=== PATIENT | male | born 1940 | race Caucasian/White ===

== ENCOUNTER 2016-08-24 12:41 | Emergency (ER) | payer OTHER ==
[~2016-08-24] VITALS: Ht 182.9 cm; Wt 87.0 kg
[2016-08-24 12:44] VITALS: BP 131/70; PULSE 68; RESP 12; TEMP 97.3; O2SAT 95
[2016-08-24] MEDS ORDERED: CIPR-9 PO (14:59)
[2016-08-24] MEDS ORDERED: IBUP800T23 PO (15:01)
[2016-09-20] MEDS ORDERED: ALPR.5 PO (11:10)
[2016-11-28] MEDS ORDERED: B-COTAB41 (10:55)
[2016-11-28] MEDS ORDERED: AMLO2.5T PO (10:55)
[2016-11-28] MEDS ORDERED: VITATAB11 (10:55)
[2016-11-28] MEDS ORDERED: POTACRY9 (10:57)
[2016-11-28] MEDS ORDERED: POTA8CAP PO (10:57)
[2016-11-28] MEDS ORDERED: MAGN500T2 PO (10:57)
[2016-11-28] MEDS ORDERED: MULTTAB67 PO (10:58)
[2016-11-28] MEDS ORDERED: AMLO10TA2 PO (11:16)
[2016-11-28] MEDS ORDERED: HYDR-3288 PO (11:16)
== END 2016-08-24 14:45 | disposition left against medical advice (07) ==
LOC: MERGE 14:40 → NED 14:40
DX: M79.606 Pain in leg, unspecified (principal)
CPT/HCPCS: 99281

== ENCOUNTER → 2016-11-28 | Day surgery (SDC) | payer OTHER ==
[~2016-11-28] VITALS: Ht 182.9 cm; Wt 85.0 kg
[~2016-11-28] MED LIST: *morphine SULFATE 8 MG/ML PERIprocedure ONLY ONE; ACETAMINOPHEN 1000 MG/100 ML VIAL IV ONE; ALPR.5 PO; AMLO10TA2 PO; AMLO2.5T PO; B-COTAB41; BUPIVACAINE/EPINEPHRINE 0.25% PF 30 ML VIAL INFIL ONE; CHLORHEXIDINE GLUCONATE 2 % 1 PACK (2 CLOTHS) TOPICAL PRN; CHLORHEXIDINE GLUCONATE 4% SOLN 120 ML BTL TOPICAL SCH; DEXAMETHASONE SOD PHOS 4 MG/ML VIAL ONE; DO NOT ADM ANY ANTICOAGULANT DRUGS PRN; FAMOTIDINE 20 MG/2 ML VIAL ONE; GENTAMICIN SULFATE 80 MG/2 ML VIAL ONE; HYDR-3288 PO; IBUP800T23 PO; INSULIN HUMAN REGULAR 1,000 UNITS/10 ML VIAL SQ PRN; LACTATED RINGER'S 1000 ML INJ 1,000 ML IV ONE; LACTATED RINGER'S 1000 ML IV PRN; MAGN500T2 PO; METOPROLOL TARTRATE 25 MG TAB PO PRN; MIDAZOLAM HCL 2 MG/2 ML VIAL ONE; MULTTAB67 PO; NEOSTIGMINE 3 MG/3 ML SYR IV ONE; ONDANSETRON HCL 4 MG/2 ML VIAL IV PUSH ONE; PHENYLEPH/NS 1000 MCG/10 ML SYR IV ONE; POTA8CAP PO; POTACRY9; POVIDONE IODINE 5% (ANTISEPSIS KIT) 4 APPLICATIONS EACH NARE PRN; PROPOFOL 200 MG/20 ML AMP IV ONE; SODIUM CHLORID 0.9% 500 ML IV PRN; STERILE WATER FOR INJ 20 ML VIAL ONE; VITATAB11; ceFAZolin 1,000 MG/NS 100 ML IV SCH; ceFAZolin INJ 1,000 MG VIAL ONE; ePHEDrine/NS 25 MG/5 ML SYR IV ONE; fentaNYL CITRATE 250 MCG/5 ML AMP ONE
[2016-11-28 10:59] VITALS: BP 148/72; PULSE 62; RESP 20; TEMP 98.5; O2SAT 98
--- NOTE | 2016-11-28 15:52 | RADRPT ---
EXAM DATE/TIME: 11/28/2016 13:55 [place] COMPARISON: No previous studies available for comparison. INDICATIONS : L2-L3 lumbar laminectomy. Level localization. MEDICAL HISTORY : None. SURGICAL HISTORY : None. ENCOUNTER: Initial ACUITY: 1 day PAIN SCORE: Non-responsive. LOCATION: Lumbar spine. FINDINGS: 2 coned down crosstable lateral views of the lumbar spine were obtained and demonstrate a metallic pr obe in place at the posterior aspect of the L2-3 interspace. The study is labeled assuming 5 non-rib- bearing lumbar-type vertebra. Spinal retractors are noted posteriorly as well. CONCLUSION: Mid localization study as described. Cullen Mock MD on November 28, 2016 at 15:50 Board Certified Radiologist. This report was verified electronically.
[2016-11-28 16:20] VITALS: BP 131/73; PULSE 80; RESP 16; TEMP 97.4; O2SAT 95
--- NOTE | 2016-11-29 11:03 | MP ---
cc: NERY ELLISON M.D., [place] DATE OF SURGERY 11/28/2016 PREOPERATIVE DIAGNOSIS 1. L2-3 herniated nucleus pulposis 2. Right greater left lumbar radiculitis 3. Lumbar spine degenerative disc osteoarthritis POSTOPERATIVE DIAGNOSIS 1. L2-3 herniated nucleus pulposis 2. Right greater left lumbar radiculitis 3. Lumbar spine degenerative disc osteoarthritis PROCEDURE L2-3 bilateral decompressive hemilaminectomy, foraminotomy, partial facetectomy, L2-3 diskectomy. SURGEON Lobo Ellison MD SHOE REPAIR SUPERVISOR Leanna Charlton PA-C SPECIMEN None ESTIMATED BLOOD LOSS 125 cc COMPLICATIONS None ANESTHESIA General DRAINS None CONDITION Stable PLAN OF ACTIVITY Per orders. PROCEDURE My diver assistant, Leanna Charlton PA-C was present for the entire surgical case. She was medically necessary for the entire case because of the complexity case and to facilitate the performance of the procedure. The COLLAR CLOSER LOCKSTITCH at the back table was not a skill set this case to manipulate the instruments e.g. multiple different types of soft tissue retractors, nerve root retractors. The patient brought into the operating room, had satisfactory general endotracheal anesthesia by Dr. Payam Monterroso of the Department of Anesthesia. The patient was carefully transferred onto the [facility] spinal frame. All pressure points were well-padded. The lumbosacral spine was prepped and draped in the usual sterile manner. A localizing x-ray was used to confirm the L2-3 interspace. 30 cc of 0.25% Marcaine with epinephrine used to anesthetize the operative site. The small midline incision made at L2-3. Under continuous fluoroscopic guidance, dissection was carried down to the L2-3 interspace. Hemilaminectomy performed bilaterally at L2-3. Partial facetectomy and foraminotomy was also performed especially on the right-sided. The nerve root was gently reflected medially. The patient was found to have herniated nucleus pulposis. Again, dissection was carried in a manner with confirmatory x-rays. Diskectomy was performed without difficulty. Minimal epidural bleeding, but Surgiflo was used to help prevent postoperative adhesions. The wound was irrigated with copious amounts of sterile saline. The wound itself was dry. The nerve root itself was well decompressed. No evidence of any dural leaks. The wound was closed in layers. The fascia was closed with #2 Tycron sutures. The subcutaneous layer was closed with 2-0 Vicryl. Skin was approximated with running subcuticular 3-0 Vicryl. Sterile dressings were applied. The patient tolerated the procedure well and arrived in the Recovery Room in stable and satisfactory condition. MD ROCÍO Ramsey/AAMIR /2:22 PM /10:54 AM
== END | disposition home or self-care (01) ==
LOC: HSDC 10:03
PROVIDERS: ATTEND Orthopaedic Surgery Orthopaedic Surgery of the Spine
DX: M51.16 Intervertebral disc disorders with radiculopathy, lumbar region (principal); M47.26 Other spondylosis with radiculopathy, lumbar region; I10 Essential (primary) hypertension
CPT/HCPCS: 00630; 63030; 72020; 76000; J0131; J0690; J1100; J1580; J2250; J2270; J2370; J2405; J2710; J3010; J7120

== ENCOUNTER → 2017-06-08 | Day surgery (SDC) | payer OTHER ==
[~2017-06-08] MED LIST changes: -*morphine SULFATE 8 MG/ML PERIprocedure ONLY ONE; -ACETAMINOPHEN 1000 MG/100 ML VIAL IV ONE; -AMLO2.5T PO; -B-COTAB41; -BUPIVACAINE/EPINEPHRINE 0.25% PF 30 ML VIAL INFIL ONE; +BUPIVACAINE/EPINEPHRINE 0.5% PF 10 ML VIAL ONE; -CHLORHEXIDINE GLUCONATE 2 % 1 PACK (2 CLOTHS) TOPICAL PRN; -CHLORHEXIDINE GLUCONATE 4% SOLN 120 ML BTL TOPICAL SCH; -DEXAMETHASONE SOD PHOS 4 MG/ML VIAL ONE; -DO NOT ADM ANY ANTICOAGULANT DRUGS PRN; -FAMOTIDINE 20 MG/2 ML VIAL ONE; -GENTAMICIN SULFATE 80 MG/2 ML VIAL ONE; +IBUP1TAB7 PO; -IBUP800T23 PO; -INSULIN HUMAN REGULAR 1,000 UNITS/10 ML VIAL SQ PRN; +KETOROLAC TROMETHAMINE 30 MG/ML (IVP) VIAL IV PUSH ONE; -LACTATED RINGER'S 1000 ML INJ 1,000 ML IV ONE; +LACTATED RINGER'S 1000 ML INJ 1,000 ML ONE; -LACTATED RINGER'S 1000 ML IV PRN; +LIDOCAINE 1.5%/EPINEPHrine 1:200,000 PF SOLN 30 ML AMP ONE; -METOPROLOL TARTRATE 25 MG TAB PO PRN; -NEOSTIGMINE 3 MG/3 ML SYR IV ONE; -ONDANSETRON HCL 4 MG/2 ML VIAL IV PUSH ONE; -PHENYLEPH/NS 1000 MCG/10 ML SYR IV ONE; -POTACRY9; -POVIDONE IODINE 5% (ANTISEPSIS KIT) 4 APPLICATIONS EACH NARE PRN; -SODIUM CHLORID 0.9% 500 ML IV PRN; -STERILE WATER FOR INJ 20 ML VIAL ONE; -ceFAZolin 1,000 MG/NS 100 ML IV SCH; +ceFAZolin 2 GM PREMIX 50 ML ONE; -ceFAZolin INJ 1,000 MG VIAL ONE; -ePHEDrine/NS 25 MG/5 ML SYR IV ONE; -fentaNYL CITRATE 250 MCG/5 ML AMP ONE
--- NOTE | 2017-06-08 09:29 | PD.OP ---
cc: Chase Ellison MD Operative Report Date of Surgery: Jun 08, 2017 Preoperative Diagnosis: Compression fracture L4, subacute Postoperative Diagnosis: Same Procedure: Kyphoplasty of L4 Anesthesia: TIVA Surgeon: Chase Ellison Battalion Fire Chief(s): Staff Operation and Findings: EBL: Minimal cc INDICATION: This patient is a 76-year-old male with significant back pain related to a fall. He sustained a recent compression fracture at L4. Despite 2 -1/2-3 weeks of conservative care, the patient is progressively painful. He presents for the above procedure PROCEDURE: The patient was brought to the operating room and given light sedation.. The patient was allowed to rolled to a prone position on a well- padded radiolucent table. All pressure points were protected in the back was scrubbed with alcohol followed by Hibiclens followed by ChloraPrep and draped sterilely. A timeout was done and antibiotics were given. AP and lateral radiographic images were used to identify the proper levels and perform skin markings. We started from the left side at the L4 level. Local anesthesia was utilized. A small incision was made. An awl was placed down through the skin subcutaneous tissue and muscle down to the end of the facet joint. This is placed through the pedicle controlling this under AP and lateral images. A proper size balloon was placed through this allowing correction of the deformity. On the back table methylmethacrylate was mixed. After approximately 11 minutes it was injected at this region. We had no extravasation. The cement was allowed harden. The tubes were removed. Intraoperative x-rays were obtained in AP and lateral plane. The wound was irrigated anesthetized and closed with 4-0 Vicryl followed by Dermabond. The sponge count and needle counts and instrument counts were all correct. The patient tolerated the procedure well as taken to the recovery room in satisfactory condition. FINDINGS: There was evidence of a recent fracture at L4. The correction was excellent. There was no complication was appreciated. Chase Ellison MD Jun 08, 2017 09:29
== END | disposition home or self-care (01) ==
LOC: EDBD → ESDC 07:11
PROVIDERS: ATTEND Orthopaedic Surgery Orthopaedic Surgery of the Spine
DX: S32.040A Wedge compression fracture of fourth lumbar vertebra, initial encounter for closed fracture (principal)
CPT/HCPCS: 01936; 22514; 72100; C1713; J0690; J1885; J2250; J3010; J7120

== ENCOUNTER 2018-05-25 13:00 | Inpatient (IN) ==
[2018-06-08] MEDS ORDERED: Chlorhexidine Gluconate 2% 1 Pack (2 Cloths) TOPICAL ONE (09:45)
[2018-06-08] MEDS ORDERED: Metoprolol Tartrate 25 MG Tablet PO ONE (09:45)
[2018-06-08] MEDS ORDERED: Sodium Chlor 0.9% Inj 500 ML IV.CONT ONE (09:45)
[2018-06-08] MEDS ORDERED: Sod Chloride 0.9% Inj 1,000 ML IV.SIG SCH (10:00)
[2018-06-08] MEDS ORDERED: Vancomycin Inj 1,000 MG in Sodium Chlor 0.9% Inj 250 ML IV.SIG SCH (10:00)
[2018-06-08 10:47] LABS: Bilirubin,Urine Negative (Negative); Clarity,Urine Clear (Clear); Color,Urine Yellow (Yellw/Straw); Glucose,Urine (UA) Negative (Negative); Leukocyte Esterase,Urine Negative (Negative); Mucus,Urine Few /lpf (Occasional); Nitrite,Urine Negative (Negative); Specific Gravity,Urine 1.018 (1.002-1.035); Squamous Epithelial Cell,Urine <1 /hpf (0-5)
[2018-06-08] MEDS ORDERED: Thrombin Topical Soln 5,000 UNIT Vial TOPICAL ONE (13:08)
[2018-06-08] MEDS ORDERED: Bupivacaine/Epinephrine 0.5% Inj 50 ML Vial ONE (13:08)
[2018-06-08] MEDS ORDERED: methylPREDNISolone acetate 40 MG/ML VIAL ONE ×2 (13:09→13:11)
[2018-06-08] MEDS ORDERED: ceFAZolin 1 GM Premix Inj 2 GM/100 ML FROZ.PIGGY IV.SIG ONE ×2 (13:09→18:51)
[2018-06-08] MEDS ORDERED: Gelatin Size 100 Topical Foam ONE (13:10)
[2018-06-08] MEDS ORDERED: Dexmedetomidine Inj 200 MCG/2 ML Vial ONE (15:50)
[2018-06-08] MEDS ORDERED: Propofol Inj 500 MG/50 ML Vial ONE ×2 (16:09→17:28)
[2018-06-08 18:37] LABS: ABG Base Excess -4.1 mmol/L (-2-2); ABG PCO2 33 mmHg (38-42); ABG PO2 259 mmHG (61-120)
[2018-06-08 19:05] LABS: Hematocrit 31.5 % (39.0-51.0); Hemoglobin 10.3 gm/dL (13.0-17.0)
[2018-06-08] MEDS ORDERED: Calcium Chloride Inj 1 GM/10 ML Syringe ONE (19:44)
[2018-06-08] MEDS ORDERED: fentaNYL Citrate Inj 100 MCG/2 ML Ampul ONE (19:46)
[2018-06-08] MEDS ORDERED: Morphine Sulfate Inj 2 MG/ML Vial IV.PUSH PRN (19:49)
[2018-06-08] MEDS ORDERED: Bisacodyl 10 MG Supp RECTAL PRN (19:49)
--- NOTE | 2018-06-08 19:54 | XR ---
EXAM DATE: 06/08/2018 7:40 PM EST AGE/SEX: 77 years / Male INDICATIONS: Fusion L2,L3 and L3,L4 with screws and rods placement. CLINICAL DATA: This is the patient's initial encounter. Patient reports that signs and symptoms have been present for 1 day and indicates a pain score of Nonresponsive. MEDICAL/SURGICAL HISTORY: None. None. COMPARISON: No prior exams available for comparison. FINDINGS: Status post lumbar spinal surgery with fusion at L2-3 and L3-4. There is good alignment of the fusion . The hardware is grossly intact. There appears to be evidence of previous kyphoplasty at L4. CONCLUSION: Good position and alignment on this postoperative study. Electronically signed by: Kashif Romero MD 06/08/2018 7:52 PM EST
[2018-06-08] MEDS ORDERED: HYDROmorphone PF Inj 2 MG/ML Vial ONE (19:55)
[2018-06-08] MEDS ORDERED: Naloxone Inj 0.4 MG/ML Vial IV.PUSH PRN (19:55)
[2018-06-08] MEDS ORDERED: HYDROmorphone PF Inj 2 MG/ML Vial IV.PUSH ONE (20:15)
[2018-06-08 20:30] LABS: Baso # (Auto) 0.1 th/mm3 (0.0-0.2); Baso % (Auto) 0.4 % (0.0-2.0); Eos % (Auto) 0.2 % (0.0-4.0); Hematocrit 36.1 % (39.0-51.0); Hemoglobin 11.9 gm/dL (13.0-17.0); Lymph # (Auto) 3.6 th/mm3 (1.0-4.8); Lymph % (Auto) 19.9 % (9.0-44.0); Mean Corpuscular HGB Conc 33.1 % (32.0-36.0); Mean Corpuscular Hemoglobin 30.1 pg (27.0-34.0); Mean Corpuscular Volume 91.1 fL (80.0-100.0); Mean Platelet Volume 8.8 fL (7.0-11.0); Mono # (Auto) 0.4 th/mm3 (0.0-0.9); Neut % (Auto) 77.5 % (16.0-70.0); Platelet Count 169 th/mm3 (150-450); Red Blood Count 3.96 mil/mm3 (4.50-5.90); Red Cell Distribution Width 14.3 % (11.6-17.2); White Blood Count 18.1 th/mm3 (4.0-11.0)
[2018-06-08] MEDS: HYDROmorphone PCA Inj 6 MG/30 ML PCA.VIAL PCA PRN (20:32)
[2018-06-08 21:02] LABS: Calcium 8.2 mg/dL (8.5-10.1); Carbon Dioxide 21.5 meq/L (21.0-32.0); Potassium 3.6 meq/L (3.5-5.1)
--- NOTE | 2018-06-08 21:38 | P.OP ---
Preoperative Diagnosis: Severe severe lumbar degenerative disc disease, with right quadrant these herniations and lumbar spinal stenosis Postoperative Diagnosis: Severe severe lumbar degenerative disc disease, with right quadrant these herniations and lumbar spinal stenosis Date of procedure: 06/08/18 Procedure: L2-3, L3-4 redo lumbar laminectomy, interbody arthrodhesis using PEEK cage and autologous bone graft, L2-3, L3-4 instrumental fixation using transpedicular screws and rods, L2-L3,L3-4 posterolateral fusion using autologous bone graft and demineralized bone matrix. Microsurgical dissection Anesthesia: LIBAN Surgeon: Moises Hall MD Product Delivery Specialist: Mili Lowery Pathology: none sent Operation and Findings: INDICATIONS FOR THE SURGICAL PROCEDURE Mr Aceves is a 77 year old male with history of prior L2-3 and L3-4 laminectomy and discectomy, as well as prior history of L4 fractures, status post prior kyphoplasty. He presented with intractable mechanical back pain and nataliia evidence of L3 and L4 lower extremity radiculopathy. He has failed maximum nonsurgical management including multiple modalities of conservative treatment as well as pain management interventions by an interventional pain specialist. A surgical decompression and arthrodhesis were indicated as a last resort. The [id number] details of the procedure, indications, alternatives, risks and potential complications were fully discussed with the patient. The patient fully understood. All the questions were answered. No guarantees were given. He voiced requesting the procedure and provided informed consents. He was offered the alternative of delaying the procedure and continuing with nonsurgical management. DETAILS OF THE SURGICAL PROCEDURE Prior to the procedure, the procedure, risks, and potential complications revisited with the patient. Placement of electrodes for intraoperative neurophysiological monitoring was completed. The patient was taken to the operative room, and following induction of general anesthesia, endotracheal intubation was performed. A Marcial catheter, bilateral DUNG hose and sequential compression devices were placed and kept throughout the procedure. The patient was positioned prone, over a Kenn table over a bolsters. All pressure in the preoperative surgical holding room points were carefully padded with eggcrate and gel mattress. The eyes were tapped shut after ointment was applied by the anesthesiologist to prevent corneal abrasion. A Kavin hugger was placed over the expossed lower body to maintain control of the core body temperature. The electrophysiological team placed the needles and electrodes in their proper location and baseline SSEP's and motor evoked potentials were registered. The entrance to each pedicles was marked using a C arm. The lumbar region was prepped and draped in the usual sterile fashion. The surgical procedure was performed in several steps as follow: SURGICAL APPROACH Once the patient was positioned, a localizing cross-table lateral and AP x-ray was performed with a C-arm. Two paramedian small incisions were outlined on the skin approximately 3cm from the midline. The skin incisions were made with a # 10 blade. Small bleeders were controlled with the cautery. The dissection was then carried out into deeper planes and through the thoracolumbar fascia with a Bovie. The intermuscular septum was identified and the muscles were blunted dissected along the septum. The facets and transverse process of L2-3, L3-4 were exposed and the proper anatomical landmarks were identified. A microsurgical self-retaining retractor was placed on the incision, and a localizing lateralizing cross-table x-ray was performed with an instrument underneath a lamina of the lumbar spine. INSTRUMENTAL FIXATION At this point in the procedure, placement of bilateral transpedicular screws was necessary for stabilization of the spine. Initially, the entry point for the screw was selected anatomically at the junction of the facet, with the transverse process, and the pars interarticularis at L2-3, L3-4. This was started with a Giamshetti needle, followed by the use of K wire. A tap was used to create the threads for the screws. Finally bilateral transpedicular screws were carefully placed bilaterally at L3, L4 under fluoroscopic visualization. An appropriate purchase was achieved with all screws. The position of each screw was assessed anatomically with an AP, lateral, oblique Xrays. An intraoperative scan view of the spine was then performed using the iso-centric c -arm. Each screw was then assessed electrophysiologically stimulating each screw with a nerve stimulator. SURGICAL DECOMPRESSION There was significant mass effect with compression of the neural structures. In order to relieve neural compression, it was necessary to perform a decompressive laminectomy, with decompression of the spinal canal and bilateral lateral recesses. Note that the scope of such decompression was significantly more extensive than the minimal exposure necessary to perform an interbody fusion, as there was extreme facet arthropathy with severe degeneration of the disk spaces and stenosis cause by the hyperthrophic joint facets. At this point of the procedure the operative microscope was draped in the usual sterile fashion and brought to the field. The rest of the surgical procedure was performed using microdissection technique with the exception of the closure. Under the operating microscope, Once the level was confirmed, the margins of the prior laminectomy were exposed at L2-3 and L3-4 There was extensive scar tissue from the prior surgery. Once the bony margins were exposed , a laminectomy was performed extending slightly the prior opening using the TPS drill with an AM-8 drill bit. A medial facetectomy was performed and the superior free border of the ligamentum flavum was dissected with a ligament dissector and removed with a thin footplate 2 mm Kerrison. The scar tissue was carefully dissected from the dural sac and the L3 and L4 nerve roots were identified and followed towards its exit in the foramen. A foraminotomy was done. Epidural veins located laterally to the dural sac were coagulated with the bipolar cautery, and then incised using microscissors. Gentle medial retraction of the dural sac allowed me to expose the disc space for the discectomy. Upon completion of the discectomy, an excellent decompression of the neural structures was achieved. Increased motion was noted thorough the procedure, which was consistent with mechanical instability at L2-3, L3-4 INTERBODY ARTHRODHESIS In order to correct the narrowing of the disk space and maintain distraction of the space, and to achieve a solid interbody fusion, it was necessary the insertion of an interbody device into the disk space. Otherwise, the disk space would collapse, compromising the result of the surgical procedure. At this point of the procedure, the annulus fibrosus of the disk was carefully coagulated with a bipolar cautery and incised using an 11 bladed knife. Then, a microdiscectomy was carried out in a standard fashion using a combination of straight and up-biting pituitary forceps. A reverse angle curette was applied underneath the posterior longitudinal ligament, and used to push the disk fragments into the disk space, so they can be safely removed with a pituitary forceps. Once the discectomy was completed, it was necessary to decorticate the endplates, in order to eliminate the cartilaginous endplate and to expose healthy bone appropriate to perform the interbody fusion. The endplates at L2-3 , L3-4 were then thoroughly decorticated using increasing size bone marcus and ring curets, eliminating the cartilaginous fragments from both, the superior and inferior endplates. A disk space distractor was applied to the pedicle screws and gentle distraction was applied. This maneuver was assisted by the use of a disk distractor. Increased motility was noted at the disk, which was consistent with instability due to facet arthropathy. Once a thorough preparation of the disk space was achieved, the disk space was irrigated with antibiotic solution, and the interbody fusion was performed by carefully impacting PPEK cages filled with autologous iliac crest bone graft. The use of several shoe impactors with different angulation, allowed me for an excellent, proper position of the interbody cages at L2-3, and at L3-4. A solid position of the cage with good purchase was achieved. The position of the cages were assessed anatomically with a probe and radiologically with the C-arm. POSTEROLATERAL FUSION The posterolateral fusion is a critical component to the procedure, to prevent future fatigue and failure of the instrumental fixation. Initially, the transverse processes of the vertebral bodies, lateral surface of the facets and the lateral gutters of the spine were carefully cleaned, eliminating all soft tissue and muscle attachments. The area was then irrigated with a large amount of antibiotic solution. Subsequently, the transverse processes, lateral surface of the facets, and lateral gutters of the spine were thoroughly decorticated using the TPS drill with a 5mm cutting camron, exposing cancellous bone, in preparation for the posterolateral fusion. The incision was again irrigated with antibiotic solution. Then, the posterolateral fusion was then performed by carefully packing the lateral gutters of the spine at L2-3, L3-4 with autologous iliac crest bone combined with demineralized bone matrix. COMPLETION OF THE INSTRUMENTATION AND CLOSURE The rods were brought to the field, applied to all the screws, and the screw caps were sequentially applied. Compression was performed between the pedicle screws, and final tightening of the screws was completed using a torque wrench. The incision was again thoroughly irrigated with several liters of antibiotic solution, and hemostasis secured with the bipolar cautery. A Valsalva Maneuver performed by the anesthesiologist failed to show any evidence of cerebrospinal fluid leak or bleeding. A 10 mm Kenn-Hernandez drain was left in the epidural space and externalized through a separate stab incision. The incision was then closed in planes. 0 Vicryl was used in an interrupted fashion to close the thoracolumbar fascia and the superficial fascia. The subcutaneous tissue was then approximated using 3-0 Vicryl in an interrupted fashion. Special care was taken to avoid space. The skin was then closed with 4-0 Vicryl in a running, subcuticular fashion. Dermabond was applied to the skin. Each plane of closure was irrigated with antibiotic solution. At the end of the procedure the sponge, needle and instrument counts were all correct. Estimated blood loss was 500-600 cc. No blood transfusion was given. The entire procedure was performed using continuous electrophysiological monitoring of the somatosensorial evoked potentials and EMG. The patient received prophylactic antibiotics. The patient was then extubated and transferred to the recovery room in stable condition.
[2018-06-08] MEDS: Senna/Docusate Sodium 8.6/50 MG Tablet PO SCH (22:41)
[2018-06-08] MEDS: Gabapentin 300 MG Capsule PO SCH (22:41)
[2018-06-09] MEDS: ceFAZolin 2 GM Premix Inj 2 GM/50 ML PIGGYBACK IV.SIG SCH ×3 (00:02→15:38)
[2018-06-09] MEDS: HYDROmorphone PCA Inj 6 MG/30 ML PCA.VIAL PCA PRN ×2 (07:31→20:21)
[2018-06-09] MEDS: amLODIPine 10 MG Tablet PO SCH (08:48)
[2018-06-09] MEDS: Gabapentin 300 MG Capsule PO SCH ×3 (08:48→18:06)
[2018-06-09] MEDS: Senna/Docusate Sodium 8.6/50 MG Tablet PO SCH ×2 (08:48→20:16)
--- NOTE | 2018-06-09 09:00 | P.CONIM ---
History of Present Illness Service: [facility] Consult date: 06/09/18 Reason for Consult: medical management Primary Care Provider: UNKNOWN Chief Complaint: Lower back pain History of Present Illness: Mr Aceves is a 77 year old male with past medical history history of hypertension, hyperlipidemia, BPH and severe lumbar spinal stenosis with prior L2-3 and L3-4 laminectomy and discectomy, as well as prior history of L4 fractures, status post prior kyphoplasty. He presented with intractable mechanical back pain and nataliia evidence of L3 and L4 lower extremity radiculopathy. Patient has failed maximum nonsurgical management including multiple modalities of conservative treatment as well as pain management interventions by an interventional pain specialist. A surgical decompression and arthrodesis were indicated as a last resort. Patient seen and examined laying in bed, complaining of some lower back pain at 5 out of 10 scale, and able to move around, with increasing pain. Patient states that he had surgery on L3-4 previously. 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 Patient denies any headache or dizziness, chest pain or shortness of breath, nausea, vomiting, diarrhea or constipation. Patient stated he usually had a good bowel movement. Review of Systems All other systems reviewed negative except as stated in HPI PMFSH - History History Provided By: Patient - Medical History Medical History: Medical History (Last Reviewed 06/09/18 @ 09:30 by KYRIE Thomas) Sleep apnea Anxiety BPH (benign prostatic hyperplasia) Back pain Hard of hearing Hx of fracture of ankle Hypertension Wears dentures - Surgical History Surgical History: Surgical History (Last Reviewed 06/09/18 @ 09:30 by KYRIE Thomas) Previous back surgery Hx of thumb surgery Hx of tonsillectomy - Family History Family History: Family History (Last Updated 06/09/18 @ 09:30 by KYRIE Thomas) Other Family history unknown - Social History I have reviewed the patient's Social History: Yes - Tobacco History Second Hand Smoke Exposure: No Tobacco Use In Past 30 Days: No Smoking Status: Former smoker - Alcohol History How Often Do You Have a Drink Containing Alcohol: Never - Substance Use History Substance History: No History of Abuse - Travel History Recent Travel in the [place] Within the Last 8 Weeks: No Recent Travel Out of the Country Within the Last 8 Weeks: No - Immunization History Tetanus Immunization: Unsure Hx Influenza Vaccine This Season: Yes Medications and Allergies Active Medications: Active Medications Hydrocodone Bitart/Acetaminophen (Silverpeak 10/325) 1 tab PO Q4H PRN PRN Reason: Pain Scale 1 To 5 Al Hydroxide/Mg Hydroxide (Milk Of Magnesia Liq) 30 ml PO Q12H PRN PRN Reason: Mild Constipation Albuterol (Albuterol Neb (Prn)) 2.5 mg NEB Q4HR NEB PRN PRN Reason: WHEEZING Amlodipine Besylate (Norvasc) 10 mg PO DAILY [facility] Last Admin: 06/09/18 08:48 Dose: 10 mg Atorvastatin Calcium (Lipitor) 40 mg PO DAILY [facility] Last Admin: 06/09/18 08:48 Dose: 40 mg Bisacodyl (Dulcolax Supp) 10 mg RECTAL DAILY PRN PRN Reason: SEVERE CONSITIPATION Gabapentin (Neurontin) 600 mg PO TID [facility] Last Admin: 06/09/18 08:48 Dose: 600 mg Lactated Ringer's (Lr 1000 Ml Inj) 1,000 mls @ 30 mls/hr IV.CONT .Q24H ONE Stop: 06/09/18 09:44 Last Admin: 06/08/18 10:00 Dose: 30 mls/hr Cefazolin Sodium/Dextrose (Ancef 2 Gm Premix Inj) 2 gm in 50 mls @ 100 mls/hr IV.SIG Q8H [facility] Stop: 06/09/18 15:29 Last Infusion: 06/09/18 07:28 Dose: Infused Potassium Chloride/Sodium Chloride (Ns + Kcl 20 Meq Inj) 1,000 mls @ 100 mls/ hr IV.CONT .Q10H [facility] Last Admin: 06/09/18 06:33 Dose: 100 mls/hr Hydromorphone/Sodium Chloride (Dilaudid Clinical Nutritionist Inj) 6 mg in 30 mls @ 0 mls/hr LEAD AUDITOR UNSCH PRN PRN Reason: prn pain Last Admin: 06/09/18 07:31 Dose: 0 mls/hr Lactulose (Lactulose Liq) 30 ml PO DAILY PRN PRN Reason: SEVERE CONSITIPATION Losartan Potassium (Cozaar) 100 mg PO DAILY [facility] Last Admin: 06/09/18 08:48 Dose: 100 mg Miscellaneous Information (Mis Nursing Information) 1 each OTHER UNSCH PRN PRN Reason: SEE LABEL COMMENTS Stop: 06/09/18 20:06 Morphine Sulfate (Morphine Inj) 2 mg IV.PUSH Q2H PRN PRN Reason: Pain Scale 1 to 6 Naloxone HCl (Narcan Inj) 0.4 mg IV.PUSH PRN PRN PRN Reason: SEE LABEL COMMENTS Pantoprazole Sodium (Protonix) 40 mg PO DAILY [facility] Last Admin: 06/09/18 08:48 Dose: 40 mg Senna/Docusate Sodium (Capri-Colace) 1 tab PO BID [facility] Last Admin: 06/09/18 08:48 Dose: 1 tab Sennosides (Senokot) 17.2 mg PO Q12H PRN PRN Reason: Moderate Constipation Tamsulosin HCl (Flomax) 0.4 mg PO DAILY [facility] Last Admin: 06/09/18 08:48 Dose: 0.4 mg Allergies Allergy/AdvReac Type Severity Reaction Status Date / Time No Known Allergies Allergy Verified 06/07/18 12:11 Home Medications Medication Instructions Recorded Confirmed Type amlodipine 10 mg PO DAILY 06/07/18 06/08/18 History atorvastatin 40 mg PO DAILY 06/07/18 06/08/18 History diclofenac sodium 50 mg PO DAILY 06/07/18 06/08/18 History gabapentin 600 mg PO DAILY 06/07/18 06/08/18 History hydrocodone-acetaminophen 1 tab PO Q4-6H PRN 06/07/18 06/08/18 History losartan 100 mg PO DAILY 06/07/18 06/08/18 History tamsulosin 0.4 mg PO DAILY 06/07/18 06/08/18 History tramadol 50 mg PO Q4-6H PRN 06/07/18 06/08/18 History Exam Vital signs: Vital Signs 06/08/18 10:00 06/08/18 19:32 06/08/18 19:45 Temperature 98.0 F 97.4 F L Pulse Rate 63 98 H 90 Respiratory Rate 16 22 22 Blood Pressure 165/87 H 157/87 H 153/84 H Pulse Oximetry 98 97 97 06/08/18 20:00 06/08/18 20:15 06/08/18 20:30 Temperature Pulse Rate 85 84 79 Respiratory Rate 22 24 13 Blood Pressure 146/80 H 147/82 H 146/80 H Pulse Oximetry 95 97 96 06/08/18 20:45 06/08/18 21:00 06/08/18 21:02 Temperature Pulse Rate 70 84 Respiratory Rate 14 14 14 Blood Pressure 134/65 143/69 H Pulse Oximetry 96 97 06/08/18 21:07 06/08/18 21:15 06/08/18 21:30 Temperature Pulse Rate 92 H 80 Respiratory Rate 14 16 16 Blood Pressure 146/74 H 139/66 Pulse Oximetry 94 L 94 L 06/08/18 21:45 06/08/18 21:54 06/09/18 00:15 Temperature 98.2 F 97.6 F Pulse Rate 78 88 Respiratory Rate 16 18 Blood Pressure 134/67 141/73 H Pulse Oximetry 94 L 94 L 96 06/09/18 01:12 06/09/18 03:35 06/09/18 08:01 Temperature 97.9 F Pulse Rate 77 Respiratory Rate 16 18 16 Blood Pressure 130/63 Pulse Oximetry 95 Intake & Output 06/08/18 06/09/18 06/09/18 18:59 06:59 18:59 Intake Total 350 / 350 4570 / 4570 50 / 50 Output Total 2515 / 2515 25 Balance 350 / 350 2055 / 2055 25 Weight 83.4 kg 88.5 kg Intake: IV 350 / 350 1050 / 1050 50 / 50 NS + KCl 20 mEq Inj 1,000 ML @ 1000 / 1000 100 mls/hr IV.CONT .Q10H [facility] Rx #:[id number] Vancomycin Inj 1,000 MG In NS 250 / 250 Inj 250 ML @ 250 mls/hr IV.SIG SHIFT SUPERVISOR FILM PROCESSING [facility] Rx#:[id number] Ancef 1 GM Premix Inj 2 gm In 100 / 100 100 ml @ 0 mls/hr IV.SIG .STK- [facility] Rx#:[id number] Ancef 2 GM Premix Inj 2 gm In 50 / 50 50 / 50 50 ml @ 100 mls/hr IV.SIG Q8H [facility] Rx#:[id number] Oral 20 / 20 Anesthesia Amount 3500 / 3500 Output: Urine 100 / 100 Estimated Blood Loss 600 / 600 Urine Amount (Catheter) 1725 / 1725 Indwelling Urethral Catheter 1725 / 1725 Wound Drainage # 1 Right Lower Back Patel Other: Date of Last Bowel Movement 06/08/18 # Bowel Movements 0 Weight On Admission 83.4 kg Narrative: GENERAL: Well-developed, well-nourished, male in no apparent distress SKIN: Warm and dry. HEAD: Atraumatic. Normocephalic. EYES: Pupils equal and round. No scleral icterus. No injection or drainage. ENT: No nasal bleeding or discharge. Mucous membranes pink and moist. NECK: Trachea midline. No JVD. CARDIOVASCULAR: Regular rate and rhythm. RESPIRATORY: No accessory muscle use. Clear to auscultation. Breath sounds equal bilaterally. On O2 1 L nasal cannula, O2 sat 95% GASTROINTESTINAL: Abdomen soft, non-tender, nondistended. Hepatic and splenic margins not palpable. MUSCULOSKELETAL: Extremities without clubbing, cyanosis, or edema. No obvious deformities. Mid lower back incision dressed dry and intact, THONY drain in place NEUROLOGICAL: Awake and alert and oriented x3. No obvious cranial nerve deficits. Motor grossly within normal limits. Generalized weakness, moving all 4 extremities normal speech. PSYCHIATRIC: Appropriate mood and affect; insight and judgment normal. Results - Labs CBC & Chem 7: 06/08/18 20:11 06/08/18 20:11 Labs: Laboratory Results - last 24 hr 06/08/18 06/08/18 06/08/18 10:10 18:02 18:24 WBC RBC Hgb Hct MCV MCH MCHC RDW Plt Count MPV Neut % (Auto) Lymph % (Auto) Sharkey % (Auto) Eos % (Auto) Baso % (Auto) Neut # (Auto) Lymph # (Auto) Sharkey # (Auto) Eos # (Auto) Baso # (Auto) WBC Differential Differential Comment Puncture Site [place] Patient Temperature 98.6 O2 Saturation 97 ABG pH 7.40 ABG pCO2 33 L ABG pO2 259 H ABG HCO3 20 L ABG O2 Content 22.5 H ABG Base Excess -4.1 L ABG Methemoglobin 1.5 Hemoglobin 16.1 H Carboxyhemoglobin 0.6 O2 Delivery Device Vent Inspired O2 50 Critical Value No Sodium Potassium Chloride Carbon Dioxide Anion Gap BUN Creatinine Estimated GFR Random Glucose Calcium Phosphorus Magnesium Urine Color Yellow Urine Clarity Clear Urine pH 6.0 Ur Specific [place] 1.018 Urine Protein Negative Urine Glucose (UA) Negative Urine Ketones Negative Urine Occult Blood Negative Urine Nitrate Negative Urine Bilirubin Negative Urine Urobilinogen Less than 2 Ur Leukocyte Esterase Negative Urine RBC 1 Urine WBC 2 Ur Squamous Epith Cells <1 Urine Mucus Few H Micro UA Comment Culture not ind Ur Microscopic Review Not Reportable Urine Culture Comments Culture not ind Blood Type O Negative Blood Type Recheck Required Antibody Screen Negative MTS Gel Crossmatch See Detail 06/08/18 06/08/18 06/08/18 18:45 20:11 20:11 WBC 18.1 H RBC 3.96 L Hgb 10.3 L 11.9 L Hct 31.5 L 36.1 L MCV 91.1 MCH 30.1 MCHC 33.1 RDW 14.3 Plt Count 169 MPV 8.8 Neut % (Auto) 77.5 H Lymph % (Auto) 19.9 Sharkey % (Auto) 2.0 Eos % (Auto) 0.2 Baso % (Auto) 0.4 Neut # (Auto) 14.0 H Lymph # (Auto) 3.6 Sharkey # (Auto) 0.4 Eos # (Auto) 0.0 Baso # (Auto) 0.1 WBC Differential . Differential Comment Auto diff final Puncture Site Patient Temperature O2 Saturation ABG pH ABG pCO2 ABG pO2 ABG HCO3 ABG O2 Content ABG Base Excess ABG Methemoglobin Hemoglobin Carboxyhemoglobin O2 Delivery Device Inspired O2 Critical Value Sodium 138 Potassium 3.6 Chloride 108 H Carbon Dioxide 21.5 Anion Gap 9 BUN 13 Creatinine 0.87 Estimated GFR 85 L Random Glucose 175 H Calcium 8.2 L Phosphorus Magnesium Urine Color Urine Clarity Urine pH Ur Specific [place] Urine Protein Urine Glucose (UA) Urine Ketones Urine Occult Blood Urine Nitrate Urine Bilirubin Urine Urobilinogen Ur Leukocyte Esterase Urine RBC Urine WBC Ur Squamous Epith Cells Urine Mucus Micro UA Comment Ur Microscopic Review Urine Culture Comments Blood Type Blood Type Recheck Antibody Screen MTS Gel Crossmatch 06/09/18 05:57 WBC RBC Hgb Hct MCV MCH MCHC RDW Plt Count MPV Neut % (Auto) Lymph % (Auto) Sharkey % (Auto) Eos % (Auto) Baso % (Auto) Neut # (Auto) Lymph # (Auto) Sharkey # (Auto) Eos # (Auto) Baso # (Auto) WBC Differential Differential Comment Puncture Site Patient Temperature O2 Saturation ABG pH ABG pCO2 ABG pO2 ABG HCO3 ABG O2 Content ABG Base Excess ABG Methemoglobin Hemoglobin Carboxyhemoglobin O2 Delivery Device Inspired O2 Critical Value Sodium Potassium Chloride Carbon Dioxide Anion Gap BUN Creatinine Estimated GFR Random Glucose Calcium Phosphorus 4.0 Magnesium 2.0 Urine Color Urine Clarity Urine pH Ur Specific [place] Urine Protein Urine Glucose (UA) Urine Ketones Urine Occult Blood Urine Nitrate Urine Bilirubin Urine Urobilinogen Ur Leukocyte Esterase Urine RBC Urine WBC Ur Squamous Epith Cells Urine Mucus Micro UA Comment Ur Microscopic Review Urine Culture Comments Blood Type Blood Type Recheck Antibody Screen MTS Gel Crossmatch - Imaging Impressions Lumbar Spine X-Ray 06/08/18 00:00 CONCLUSION: Good position and alignment on this postoperative study. Assessment and Plan - Assessment (1) Status post laminectomy Code(s): Z98.890 - Other specified postprocedural states Status: Acute (2) Lumbar degenerative disc disease Code(s): M51.36 - Other intervertebral disc degeneration, lumbar region Status : Acute (3) Lumbar spinal stenosis Code(s): M48.061 - Spinal stenosis, lumbar region without neurogenic claudication Status: Acute (4) History of throat cancer Code(s): Z85.819 - Personal history of malignant neoplasm of unspecified site of lip, oral cavity, and pharynx Status: Acute (5) Hypertension Code(s): I10 - Essential (primary) hypertension Status: Acute (6) Hyperlipidemia Code(s): E78.5 - Hyperlipidemia, unspecified Status: Acute (7) BPH (benign prostatic hyperplasia) Code(s): N40.0 - Benign prostatic hyperplasia without lower urinary tract symptoms Status: Acute - Plan Mr Aceves is a 77 year old male with past medical history history of hypertension, hyperlipidemia, BPH and severe lumbar spinal stenosis with prior L2-3 and L3-4 laminectomy and discectomy, as well as prior history of L4 fractures, status post prior kyphoplasty. He presented with intractable mechanical back pain and nataliia evidence of L3 and L4 lower extremity radiculopathy. Severe lumbar spinal stenosis Lumbar degenerative disc disease Status post laminectomy History of L2-L3 laminectomy and discectomy Chronic back pain -Status post L2-3, L3-4 redo lumbar laminectomy, instrument of fixation with trans-pedicular hooks screws and amandeep, posterolateral fusion with autologous bone graft and demineralized bone matrix, microsurgical dissection on [address] Hall -Pain control with on Dilaudid pump, as needed Silverpeak. Pain management by neurosurgeon -bowel regimen -Continue PT rehab per protocol -Continue gabapentin Leukocytosis -no fever or chills -recheck CBC today -on Cefazolin IV as surgical prophylactic treatment -monitor signs and symptoms Hypertension -Blood pressure controlled -Continue amlodipine, losartan and Norvasc -Monitor blood pressure Hyperlipidemia Continue atorvastatin Monitor lipids and LFT BPH Continue tamsulosin Monitor DVT Prophylaxis: bilateral SCD's Code Status: full code Discussed Condition With: patient and nurse
[2018-06-09 11:20] LABS: Baso % (Auto) 0.2 % (0.0-2.0); Eos % (Auto) 0.1 % (0.0-4.0); Hematocrit 32.5 % (39.0-51.0); Hemoglobin 10.9 gm/dL (13.0-17.0); Lymph % (Auto) 29.4 % (9.0-44.0); Mean Corpuscular HGB Conc 33.5 % (32.0-36.0); Mean Corpuscular Hemoglobin 30.7 pg (27.0-34.0); Mean Corpuscular Volume 91.7 fL (80.0-100.0); Mono # (Auto) 0.8 th/mm3 (0.0-0.9); Mono % (Auto) 5.9 % (0.0-8.0); Neut # (Auto) 8.9 th/mm3 (1.8-7.7); Neut % (Auto) 64.4 % (16.0-70.0); Platelet Count 171 th/mm3 (150-450); Red Blood Count 3.54 mil/mm3 (4.50-5.90); Red Cell Distribution Width 14.8 % (11.6-17.2); White Blood Count 13.8 th/mm3 (4.0-11.0)
--- NOTE | 2018-06-09 11:55 | P.PNNS ---
Subjective Interval history: More painful than last surgery, but overall doing well Physical Exam Vital signs: Vital Signs 06/08/18 19:32 06/08/18 19:45 06/08/18 20:00 Temperature 97.4 F L Pulse Rate 98 H 90 85 Respiratory Rate 22 22 22 Blood Pressure 157/87 H 153/84 H 146/80 H Pulse Oximetry 97 97 95 06/08/18 20:15 06/08/18 20:30 06/08/18 20:45 Temperature Pulse Rate 84 79 70 Respiratory Rate 24 13 14 Blood Pressure 147/82 H 146/80 H 134/65 Pulse Oximetry 97 96 96 06/08/18 21:00 06/08/18 21:02 06/08/18 21:07 Temperature Pulse Rate 84 Respiratory Rate 14 14 14 Blood Pressure 143/69 H Pulse Oximetry 97 06/08/18 21:15 06/08/18 21:30 06/08/18 21:45 Temperature 98.2 F Pulse Rate 92 H 80 78 Respiratory Rate 16 16 16 Blood Pressure 146/74 H 139/66 134/67 Pulse Oximetry 94 L 94 L 94 L 06/08/18 21:54 06/09/18 00:15 06/09/18 01:12 Temperature 97.6 F Pulse Rate 88 Respiratory Rate 18 16 Blood Pressure 141/73 H Pulse Oximetry 94 L 96 06/09/18 03:35 06/09/18 08:00 06/09/18 08:01 Temperature 97.9 F 98.5 F Pulse Rate 77 65 Respiratory Rate 18 12 16 Blood Pressure 130/63 129/67 Pulse Oximetry 95 95 Intake & Output 06/08/18 06/09/18 06/09/18 18:59 06:59 18:59 Intake Total 350 / 350 4570 / 4570 50 / 50 Output Total 2515 / 2515 25 / 25 Balance 350 / 350 2055 / 2055 25 / 25 Weight 83.4 kg 88.5 kg Intake: IV 350 / 350 1050 / 1050 50 / 50 NS + KCl 20 mEq Inj 1,000 ML @ 1000 / 1000 100 mls/hr IV.CONT .Q10H [facility] Rx #:[id number] Vancomycin Inj 1,000 MG In NS 250 / 250 Inj 250 ML @ 250 mls/hr IV.SIG CREOSOTING ENGINEER [facility] Rx#:[id number] Ancef 1 GM Premix Inj 2 gm In 100 / 100 100 ml @ 0 mls/hr IV.SIG .STK- [facility] Rx#:[id number] Ancef 2 GM Premix Inj 2 gm In 50 / 50 50 / 50 50 ml @ 100 mls/hr IV.SIG Q8H [facility] Rx#:[id number] Oral 20 / 20 Anesthesia Amount 3500 / 3500 Output: Urine 100 / 100 Estimated Blood Loss 600 / 600 Urine Amount (Catheter) 1725 / 1725 Indwelling Urethral Catheter 1724 / 1725 Wound Drainage # 1 Right Lower Back Patel Other: Date of Last Bowel Movement 06/08/18 06/08/18 # Bowel Movements 0 Weight On Admission 83.4 kg Narrative: Dressing c/d/i A&O x 3 CN intact Full strength UE/LE . - Urinary Catheter Management Indwelling Urethral Catheter Cath placed during this visit: yes, but has since been removed by the nurse Reason for continuing: Decision to DC catheter Insertion date: 06/08/18 Removal date: 06/09/18 Removal time: 10:30 Assessment and Plan - Plan pod#1 PLIF Maintain THONY drain one more day D/c farr Ambulate with PT when available with brace when OOB D/c planning next week ?Ste[place]on
[2018-06-09 12:01] LABS: Lymphocytes 15 % (9-44); Monocytes 5 % (0-8)
[2018-06-09 12:02] LABS: Platelet Estimate Normal (Normal); Platelet Morphology Normal (Normal); RBC Morphology Normal (Normal)
[2018-06-10] MEDS: HYDROmorphone PCA Inj 6 MG/30 ML PCA.VIAL PCA PRN ×2 (06:28→19:16)
[2018-06-10 06:32] LABS: Baso # (Auto) 0.1 th/mm3 (0.0-0.2); Baso % (Auto) 0.6 % (0.0-2.0); Eos # (Auto) 0.2 th/mm3 (0.0-0.4); Eos % (Auto) 1.4 % (0.0-4.0); Hematocrit 32.1 % (39.0-51.0); Hemoglobin 10.8 gm/dL (13.0-17.0); Lymph # (Auto) 4.4 th/mm3 (1.0-4.8); Lymph % (Auto) 33.7 % (9.0-44.0); Mean Corpuscular HGB Conc 33.7 % (32.0-36.0); Mean Corpuscular Hemoglobin 30.5 pg (27.0-34.0); Mean Corpuscular Volume 90.6 fL (80.0-100.0); Mono # (Auto) 0.7 th/mm3 (0.0-0.9); Mono % (Auto) 5.2 % (0.0-8.0); Neut # (Auto) 7.6 th/mm3 (1.8-7.7); Neut % (Auto) 59.1 % (16.0-70.0); Platelet Count 160 th/mm3 (150-450); Red Blood Count 3.54 mil/mm3 (4.50-5.90); Red Cell Distribution Width 14.7 % (11.6-17.2); White Blood Count 12.9 th/mm3 (4.0-11.0)
[2018-06-10 06:48] LABS: Calcium 7.3 mg/dL (8.5-10.1); Carbon Dioxide 26.2 meq/L (21.0-32.0); Potassium 3.6 meq/L (3.5-5.1)
[2018-06-10 07:01] LABS: Albumin 2.9 g/dL (3.4-5.0); Calcium-Albumin Corrected 8.2 mg/dL (8.5-10.1)
[2018-06-10] MEDS: Senna/Docusate Sodium 8.6/50 MG Tablet PO SCH ×2 (08:19→20:18)
[2018-06-10] MEDS: amLODIPine 10 MG Tablet PO SCH (08:20)
[2018-06-10] MEDS: Gabapentin 300 MG Capsule PO SCH ×3 (08:20→18:25)
--- NOTE | 2018-06-10 12:12 | P.PNNS ---
Subjective Interval history: Less painful today, ambulated to bathroom with assist Physical Exam Vital signs: Vital Signs 06/09/18 16:00 06/09/18 20:00 06/10/18 00:00 Temperature 98.0 F 97.7 F 97.2 F L Pulse Rate 81 87 83 Respiratory Rate 14 22 22 Blood Pressure 136/76 143/76 H 127/69 Pulse Oximetry 93 L 96 93 L 06/10/18 04:00 06/10/18 08:00 06/10/18 08:20 Temperature 98.1 F 98.7 F Pulse Rate 79 87 Respiratory Rate 22 14 20 Blood Pressure 132/67 134/81 Pulse Oximetry 94 L 96 Intake & Output 06/09/18 06/10/18 06/10/18 18:59 06:59 18:59 Intake Total 1770 / 1770 1400 / 1400 Output Total 55 / 55 920 / 920 Balance 1715 / 1715 480 / 480 Weight 89 kg Intake: IV 1050 / 1050 1000 / 1000 NS + KCl 20 mEq Inj 1,000 ML @ 1000 / 1000 1000 / 1000 100 mls/hr IV.CONT .Q10H [facility] Rx #:[id number] Ancef 2 GM Premix Inj 2 gm In 50 / 50 50 ml @ 100 mls/hr IV.SIG Q8H [facility] Rx#:[id number] Oral 720 / 720 400 / 400 Output: Urine 900 / 900 Wound Drainage 55 / 55 20 / 20 # 1 Right Lower Back Patel 55 / 55 20 / 20 Other: # Voids 2 Date of Last Bowel Movement 06/08/18 06/08/18 Narrative: incision c/d/i - drain removed A&O x 3 CN intact Full strength UE/LE . - Urinary Catheter Management Indwelling Urethral Catheter Cath placed during this visit: yes, but has since been removed by the nurse Reason for continuing: Decision to DC catheter Insertion date: 06/08/18 Removal date: 06/09/18 Removal time: 10:30 Assessment and Plan - Plan postop PLIF 06/08/18 (Rafael) D/c drain today Ambulate with PT when available with brace when OOB D/c planning next week ?Tues -- PT says rehab
--- NOTE | 2018-06-10 13:05 | P.PNIM ---
Subjective Interval history: Follow-up for hypertension, hyperlipidemia, BPH and severe lumbar spinal stenosis status post lumbar fusion. Patient seen and examined laying in bed, brace on, complaint of severe back pain especially with movement. Patient wanted to use the Dilaudid pump, refused to take the p.o. oral medication, stated having trouble with his stomach. Discussed will add Zofran for nausea. Discussed transition to oral medication patient also complained no bowel movement yet. Discussed laxative and stool softeners. Patient denies any headache or dizziness, denies any chest pain or shortness of breath, denies any fever or chills. Nurse reported patient refusal for taking p.o. medication, causing abdominal discomfort. Discussed bowel regimen and laxative for today. Physical Exam Vital signs: Vital Signs 06/09/18 16:00 06/09/18 20:00 06/10/18 00:00 Temperature 98.0 F 97.7 F 97.2 F L Pulse Rate 81 87 83 Respiratory Rate 14 22 22 Blood Pressure 136/76 143/76 H 127/69 Pulse Oximetry 93 L 96 93 L 06/10/18 04:00 06/10/18 08:00 06/10/18 08:20 Temperature 98.1 F 98.7 F Pulse Rate 79 87 Respiratory Rate 22 14 20 Blood Pressure 132/67 134/81 Pulse Oximetry 94 L 96 06/10/18 12:00 Temperature 98.9 F Pulse Rate 80 Respiratory Rate 14 Blood Pressure 154/82 H Pulse Oximetry 96 Intake & Output 06/09/18 06/10/18 06/10/18 18:59 06:59 18:59 Intake Total 1770 / 1770 1400 / 1400 Output Total 920 / 920 Balance 1715 / 1715 480 / 480 Weight 89 kg Intake: IV 1050 / 1050 1000 / 1000 NS + KCl 20 mEq Inj 1,000 ML @ 1000 / 1000 1000 / 1000 100 mls/hr IV.CONT .Q10H OBDULIO Rx #:[id number] Ancef 2 GM Premix Inj 2 gm In 50 / 50 50 ml @ 100 mls/hr IV.SIG Q8H OBDULIO Rx#:[id number] Oral 720 / 720 400 / 400 Output: Urine 900 / 900 Wound Drainage 20 / # 1 Right Lower Back Patel Other: # Voids 2 1 # Incontinent Voids 1 Date of Last Bowel Movement 06/08/18 06/08/18 06/10/18 Narrative: GENERAL: Well-developed, well-nourished, male in no apparent distress SKIN: Warm and dry. HEAD: Atraumatic. Normocephalic. EYES: Pupils equal and round. No scleral icterus. No injection or drainage. ENT: No nasal bleeding or discharge. Mucous membranes pink and moist. NECK: Trachea midline. No JVD. CARDIOVASCULAR: Regular rate and rhythm. RESPIRATORY: No accessory muscle use. Clear to auscultation. Breath sounds equal bilaterally. GASTROINTESTINAL: Abdomen soft, non-tender, nondistended. Hepatic and splenic margins not palpable. MUSCULOSKELETAL: Extremities without clubbing, cyanosis, or edema. No obvious deformities. Mid lower back incision dry and intact no redness no drainage noted lumbar brace in place NEUROLOGICAL: Awake and alert x4. No obvious cranial nerve deficits. Motor grossly within normal limits. Generalized weakness, moving all 4 extremities normal speech. PSYCHIATRIC: Appropriate mood and affect; insight and judgment normal. i - Urinary Catheter Management Indwelling Urethral Catheter Cath placed during this visit: yes, but has since been removed by the nurse Reason for continuing: Decision to DC catheter Insertion date: 06/08/18 Removal date: 06/09/18 Removal time: 10:30 Results - Labs CBC & Chem 7: 06/10/18 06:11 06/10/18 06:11 Laboratory Results - last 24 hr 06/10/18 06/10/18 06:11 06:11 WBC 12.9 H RBC 3.54 L Hgb 10.8 L Hct 32.1 L MCV 90.6 MCH 30.5 MCHC 33.7 RDW 14.7 Plt Count 160 MPV 9.0 Neut % (Auto) 59.1 Lymph % (Auto) 33.7 [place] % (Auto) 5.2 Eos % (Auto) 1.4 Baso % (Auto) 0.6 Neut # (Auto) 7.6 Lymph # (Auto) 4.4 [place] # (Auto) 0.7 Eos # (Auto) 0.2 Baso # (Auto) 0.1 WBC Differential . Differential Comment Auto diff final Sodium 140 Potassium 3.6 Chloride 108 H Carbon Dioxide 26.2 Anion Gap 6 BUN 16 Creatinine 0.95 Estimated GFR 77 L Random Glucose 126 H Calcium 7.3 L* D Calcium Adj for Albumin 8.2 L Albumin 2.9 L Assessment and Plan - Assessment (1) Status post laminectomy Code(s): Z98.890 - Other specified postprocedural states Status: Acute (2) Lumbar degenerative disc disease Code(s): M51.36 - Other intervertebral disc degeneration, lumbar region Status : Acute (3) Lumbar spinal stenosis Code(s): M48.061 - Spinal stenosis, lumbar region without neurogenic claudication Status: Acute (4) History of throat cancer Code(s): Z85.819 - Personal history of malignant neoplasm of unspecified site of lip, oral cavity, and pharynx Status: Acute (5) Hypertension Code(s): I10 - Essential (primary) hypertension Status: Acute (6) Hyperlipidemia Code(s): E78.5 - Hyperlipidemia, unspecified Status: Acute (7) BPH (benign prostatic hyperplasia) Code(s): N40.0 - Benign prostatic hyperplasia without lower urinary tract symptoms Status: Acute - Plan Mr Aceves is a 77 year old male with past medical history history of hypertension, hyperlipidemia, BPH and severe lumbar spinal stenosis with prior L2-3 and L3-4 laminectomy and discectomy, as well as prior history of L4 fractures, status post prior kyphoplasty. He presented with intractable mechanical back pain and nataliia evidence of L3 and L4 lower extremity radiculopathy. Severe lumbar spinal stenosis Lumbar degenerative disc disease Status post laminectomy History of L2-L3 laminectomy and discectomy Chronic back pain -Status post L2-3, L3-4 redo lumbar laminectomy, instrument of fixation with trans-pedicular hooks screws and amandeep, posterolateral fusion with autologous bone graft and demineralized bone matrix, microsurgical dissection on [address] Hall -Pain control with on Dilaudid pump, as needed [place]. Pain management by neurosurgeon -Increase bowel regimen -Continue PT rehab per protocol -Continue gabapentin, encourage p.o. pain medication to transition to oral pain control. -Neurosurgeon following: Plan to discharge on Monday Leukocytosis -no fever or chills -WBC trending down, 12.9 today -on Cefazolin IV as surgical prophylactic treatment -monitor signs and symptoms Hypertension -Blood pressure controlled -Continue amlodipine, losartan and Norvasc -Monitor blood pressure Hyperlipidemia -Continue atorvastatin -Monitor lipids and LFT BPH -Continue tamsulosin -Monitor Constipation Likely related to pain medication -Give laxative today -Increase stool softener -Monitor response GI prophylaxis: Protonix DVT Prophylaxis: bilateral SCD's Code Status: Full code Discussed Condition With: Patient and nurse Discharge Planning: Plan to discharge on Monday per neurosurgeon, when stable
[2018-06-11 08:21] LABS: Baso % (Auto) 0.2 % (0.0-2.0); Eos % (Auto) 0.3 % (0.0-4.0); Hematocrit 33.7 % (39.0-51.0); Hemoglobin 11.5 gm/dL (13.0-17.0); Lymph % (Auto) 24.6 % (9.0-44.0); Mean Corpuscular Hemoglobin 30.8 pg (27.0-34.0); Mean Corpuscular Volume 90.6 fL (80.0-100.0); Mean Platelet Volume 9.2 fL (7.0-11.0); Mono # (Auto) 0.6 th/mm3 (0.0-0.9); Mono % (Auto) 5.2 % (0.0-8.0); Neut # (Auto) 8.4 th/mm3 (1.8-7.7); Neut % (Auto) 69.7 % (16.0-70.0); Platelet Count 176 th/mm3 (150-450); Red Blood Count 3.72 mil/mm3 (4.50-5.90); Red Cell Distribution Width 14.6 % (11.6-17.2)
[2018-06-11 08:38] LABS: Calcium 7.9 mg/dL (8.5-10.1); Carbon Dioxide 26.5 meq/L (21.0-32.0); Potassium 3.6 meq/L (3.5-5.1)
[2018-06-11] MEDS: Senna/Docusate Sodium 8.6/50 MG Tablet PO SCH ×2 (10:02→21:23)
[2018-06-11] MEDS: Gabapentin 300 MG Capsule PO SCH ×3 (10:02→17:25)
[2018-06-11] MEDS: amLODIPine 10 MG Tablet PO SCH (10:03)
--- NOTE | 2018-06-11 10:49 | P.PNNS ---
Subjective Interval history: PT mobilizing OOB, c/o moderate nausea and upset stomach, may be due to effects of pain medications, requesting pepto bismol to help coat his stomach. Physical Exam Vital signs: Vital Signs 06/10/18 12:00 06/10/18 16:00 06/10/18 20:11 Temperature 98.9 F 99.3 F Pulse Rate 80 78 Respiratory Rate 14 14 20 Blood Pressure 154/82 H 140/67 Pulse Oximetry 96 95 06/10/18 20:48 06/10/18 20:58 06/10/18 23:48 Temperature 98.3 F Pulse Rate 84 Respiratory Rate 19 18 19 Blood Pressure 113/59 L Pulse Oximetry 95 06/11/18 00:00 06/11/18 03:58 06/11/18 04:00 Temperature 98.2 F 97.9 F Pulse Rate 81 81 Respiratory Rate 18 18 18 Blood Pressure 136/71 135/67 Pulse Oximetry 95 95 06/11/18 08:35 Temperature 98.8 F Pulse Rate 83 Respiratory Rate 16 Blood Pressure 144/72 H Pulse Oximetry 93 L Intake & Output 06/10/18 06/11/18 06/11/18 18:59 06:59 18:59 Intake Total 720 / 720 960 / 960 Balance 720 / 720 960 / 960 Intake: Oral 720 / 720 960 / 960 Other: # Voids 4 4 # Incontinent Voids 1 Date of Last Bowel Movement 06/10/18 06/11/18 # Bowel Movements 1 1 Narrative: Sitting up on edge of bed with TLSO brace attempting to mobilize with PT appears uncomfortable, nauseated i - Urinary Catheter Management Indwelling Urethral Catheter Cath placed during this visit: yes, but has since been removed by the nurse Reason for continuing: Decision to DC catheter Insertion date: 06/08/18 Removal date: 06/09/18 Removal time: 10:30 Assessment and Plan - Plan postop PLIF 06/08/18 cont PT mobilize with brace when OOB dc [employer] pump pepto bismol for upset stomach SCDs and TEDs for dvt prophylaxis protonix for gi proph cont bowel regimen medicine following
[2018-06-11] MEDS: Bismuth Subsalicylate Susp 240 ML Bottle PO PRN ×2 (13:31→21:26)
--- NOTE | 2018-06-11 13:46 | P.PNIM ---
Subjective Interval history: Follow-up for hypertension, hyperlipidemia, BPH and severe lumbar spinal stenosis status post lumbar fusion. Patient seen and examined laying in bed, stated does not feel well, stated her stone history [place] hurts more than his back. Patient stated cannot eat breakfast or lunch and wants something to coat his stomach. Discussed with nursing to give Pepto-Bismol dose now. Patient stated had a bowel movement today, denies any diarrhea or constipation. Patient denies any headache or dizziness, denies any chest pain or shortness of breath. Patient stated he refused to rehab today due to his abdominal pain. Discussed with nurse to give as needed medication as needed. Physical Exam Vital signs: Vital Signs 06/10/18 16:00 06/10/18 20:11 06/10/18 20:48 Temperature 99.3 F Pulse Rate 78 Respiratory Rate 14 20 19 Blood Pressure 140/67 Pulse Oximetry 95 06/10/18 20:58 06/10/18 23:48 06/11/18 00:00 Temperature 98.3 F 98.2 F Pulse Rate 84 81 Respiratory Rate 18 19 18 Blood Pressure 113/59 L 136/71 Pulse Oximetry 95 95 06/11/18 03:58 06/11/18 04:00 06/11/18 08:35 Temperature 97.9 F 98.8 F Pulse Rate 81 83 Respiratory Rate 18 18 16 Blood Pressure 135/67 144/72 H Pulse Oximetry 95 93 L 06/11/18 11:35 06/11/18 13:31 Temperature 98.7 F Pulse Rate 87 Respiratory Rate 17 18 Blood Pressure 152/74 H Pulse Oximetry 94 L Intake & Output 06/10/18 06/11/18 06/11/18 18:59 06:59 18:59 Intake Total 720 / 720 960 / 960 Balance 720 / 720 960 / 960 Intake: Oral 720 / 720 960 / 960 Other: # Voids 4 4 # Incontinent Voids 1 Date of Last Bowel Movement 06/10/18 06/11/18 # Bowel Movements 1 1 Narrative: GENERAL: Well-developed, well-nourished, male in no apparent distress SKIN: Warm and dry. HEAD: Atraumatic. Normocephalic. EYES: Pupils equal and round. No scleral icterus. No injection or drainage. ENT: No nasal bleeding or discharge. Mucous membranes pink and moist. NECK: Trachea midline. No JVD. CARDIOVASCULAR: Regular rate and rhythm. RESPIRATORY: No accessory muscle use. Clear to auscultation. Breath sounds equal bilaterally. GASTROINTESTINAL: Abdomen soft, non-tender, nondistended. Hepatic and splenic margins not palpable. MUSCULOSKELETAL: Extremities without clubbing, cyanosis, or edema. No obvious deformities. Mid right lumbar incision clean dry and intact healing well, no redness no edema no drainage. NEUROLOGICAL: Awake and alert and oriented x3 no obvious cranial nerve deficits. Motor grossly within normal limits. Generalized weakness moving all 4 extremities \. Normal speech. PSYCHIATRIC: Appropriate mood and affect; insight and judgment normal. Sitting up on edge of bed with TLSO brace attempting to mobilize with PT appears uncomfortable, nauseated i - Urinary Catheter Management Indwelling Urethral Catheter Cath placed during this visit: yes, but has since been removed by the nurse Reason for continuing: Decision to DC catheter Insertion date: 06/08/18 Removal date: 06/09/18 Removal time: 10:30 Results - Labs CBC & Chem 7: 06/11/18 07:40 06/11/18 07:40 Laboratory Results - last 24 hr 06/08/18 06/11/18 06/11/18 18:02 07:40 07:40 WBC 12.0 H RBC 3.72 L Hgb 11.5 L Hct 33.7 L MCV 90.6 MCH 30.8 MCHC 34.0 RDW 14.6 Plt Count 176 MPV 9.2 Neut % (Auto) 69.7 Lymph % (Auto) 24.6 [place] % (Auto) 5.2 Eos % (Auto) 0.3 Baso % (Auto) 0.2 Neut # (Auto) 8.4 H Lymph # (Auto) 3.0 [place] # (Auto) 0.6 Eos # (Auto) 0.0 Baso # (Auto) 0.0 WBC Differential . Differential Comment Auto diff final Sodium 139 Potassium 3.6 Chloride 105 Carbon Dioxide 26.5 Anion Gap 8 BUN 16 Creatinine 1.16 Estimated GFR 61 L Random Glucose 134 H Calcium 7.9 L MTS Gel Crossmatch See Detail Assessment and Plan - Assessment (1) Status post laminectomy Code(s): Z98.890 - Other specified postprocedural states Status: Acute (2) Lumbar degenerative disc disease Code(s): M51.36 - Other intervertebral disc degeneration, lumbar region Status : Acute (3) Lumbar spinal stenosis Code(s): M48.061 - Spinal stenosis, lumbar region without neurogenic claudication Status: Acute (4) History of throat cancer Code(s): Z85.819 - Personal history of malignant neoplasm of unspecified site of lip, oral cavity, and pharynx Status: Acute (5) Hypertension Code(s): I10 - Essential (primary) hypertension Status: Acute (6) Hyperlipidemia Code(s): E78.5 - Hyperlipidemia, unspecified Status: Acute (7) BPH (benign prostatic hyperplasia) Code(s): N40.0 - Benign prostatic hyperplasia without lower urinary tract symptoms Status: Acute - Plan Mr Aceves is a 77 year old male with past medical history history of hypertension, hyperlipidemia, BPH and severe lumbar spinal stenosis with prior L2-3 and L3-4 laminectomy and discectomy, as well as prior history of L4 fractures, status post prior kyphoplasty. He presented with intractable mechanical back pain and nataliia evidence of L3 and L4 lower extremity radiculopathy. Severe lumbar spinal stenosis Lumbar degenerative disc disease Status post laminectomy History of L2-L3 laminectomy and discectomy Chronic back pain -Status post L2-3, L3-4 redo lumbar laminectomy, instrument of fixation with trans-pedicular hooks screws and amandeep, posterolateral fusion with autologous bone graft and demineralized bone matrix, microsurgical dissection on [address] Hall -Discontinued Dilaudid pump, continue as needed [place]. Pain management by neurosurgeon -Increase bowel regimen -Continue PT rehab per protocol -Continue gabapentin, encourage p.o. pain medication to transition to oral pain control. -Neurosurgeon following: Plan to discharge on Monday Leukocytosis -no fever or chills -WBC trending down, 12.0 today -s/p Cefazolin IV as surgical prophylactic treatment -monitor signs and symptoms, monitor CBC Hypertension -Blood pressure controlled -Continue amlodipine, losartan and Norvasc -Monitor blood pressure Hyperlipidemia -Continue atorvastatin -Monitor lipids and LFT BPH -Continue tamsulosin -Monitor Constipation Likely related to pain medication -Give laxative as needed -Continue increase dose of stool softener -Monitor response, improving, had a good bowel movement this morning Dyspepsia Abdominal pain -Add Pepto-Bismol as needed - continue Protonix GI prophylaxis: Protonix DVT Prophylaxis: bilateral SCD's Code Status: Full code Discussed Condition With: Patient and nurse Discharge Planning: Plan to discharge on Monday per neurosurgeon, when stable
[2018-06-12] MEDS: Bismuth Subsalicylate Susp 240 ML Bottle PO PRN ×2 (03:05→08:52)
[2018-06-12 05:02] LABS: Baso % (Auto) 0.3 % (0.0-2.0); Eos # (Auto) 0.1 th/mm3 (0.0-0.4); Eos % (Auto) 1.2 % (0.0-4.0); Hematocrit 35.2 % (39.0-51.0); Hemoglobin 11.9 gm/dL (13.0-17.0); Lymph # (Auto) 3.1 th/mm3 (1.0-4.8); Lymph % (Auto) 26.4 % (9.0-44.0); Mean Corpuscular HGB Conc 33.7 % (32.0-36.0); Mean Corpuscular Hemoglobin 30.3 pg (27.0-34.0); Mean Corpuscular Volume 89.9 fL (80.0-100.0); Mean Platelet Volume 9.3 fL (7.0-11.0); Mono # (Auto) 0.6 th/mm3 (0.0-0.9); Mono % (Auto) 4.8 % (0.0-8.0); Neut # (Auto) 7.8 th/mm3 (1.8-7.7); Neut % (Auto) 67.3 % (16.0-70.0); Platelet Count 198 th/mm3 (150-450); Red Blood Count 3.92 mil/mm3 (4.50-5.90); Red Cell Distribution Width 14.7 % (11.6-17.2); White Blood Count 11.6 th/mm3 (4.0-11.0)
[2018-06-12 08:14] VITALS: O2SAT 92
[2018-06-12] MEDS: Senna/Docusate Sodium 8.6/50 MG Tablet PO SCH (08:51)
[2018-06-12] MEDS: Gabapentin 300 MG Capsule PO SCH ×2 (08:52→12:49)
[2018-06-12] MEDS: amLODIPine 10 MG Tablet PO SCH (08:54)
--- NOTE | 2018-06-12 09:45 | P.DCO ---
- Physical Therapy Order: Improve ambulation - Home Health Nursing Order: Medical education, Signs/symptoms of disease process, Medication education-adverse effect, Wound care and dressing changes (optifoam dressing can stay on until 06/19, then daily primapre changes. pt may shower. ), Nursing assessment with vital signs - Case Management Consult Case Management Consult-Home Health: Yes - Certification I have seen patient Kenton Aceves on 06/12/18. My clinical findings support the need for the requested home health care services because: Deconditioned with increased weakness I certify that my clinical findings support that this patient is homebound because: Post-op weakness
--- NOTE | 2018-06-12 10:35 | P.PNNS ---
Subjective Interval history: reports surgical pain better today, stomach also feeling better, requesting to go home as he cannot get good sleep in the hospital. +BM yesterday Physical Exam Vital signs: Vital Signs 06/11/18 11:35 06/11/18 13:31 06/11/18 15:35 Temperature 98.7 F 98.9 F Pulse Rate 87 91 H Respiratory Rate 17 18 18 Blood Pressure 152/74 H 152/72 H Pulse Oximetry 94 L 92 L 06/11/18 15:51 06/11/18 17:48 06/11/18 18:52 Temperature Pulse Rate Respiratory Rate 20 18 18 Blood Pressure Pulse Oximetry 06/11/18 19:40 06/11/18 20:00 06/11/18 23:45 Temperature 98 F 98 F Pulse Rate 91 H 82 Respiratory Rate 18 18 18 Blood Pressure 159/85 H 133/76 Pulse Oximetry 95 95 06/12/18 04:05 06/12/18 07:30 06/12/18 08:50 Temperature 97.3 F L 97.3 F L Pulse Rate 81 98 H Respiratory Rate 18 17 Blood Pressure 137/72 96/54 L 129/76 Pulse Oximetry 95 92 L Intake & Output 06/11/18 06/12/18 06/12/18 18:59 06:59 18:59 Intake Total 120 / 120 Balance 120 / 120 Weight 87.2 kg Intake: Oral 120 / 120 Other: # Voids 4 3 Date of Last Bowel Movement 06/11/18 06/11/18 # Bowel Movements 2 0 - Urinary Catheter Management Indwelling Urethral Catheter Cath placed during this visit: yes, but has since been removed by the nurse Reason for continuing: Decision to DC catheter Insertion date: 06/08/18 Removal date: 06/09/18 Removal time: 10:30 Assessment and Plan - Plan postop PLIF 06/08/18 cont PT mobilize with brace when OOB pepto bismol for upset stomach SCDs and TEDs for dvt prophylaxis protonix for gi proph cont bowel regimen medicine following Dr. Hall orders for discharge home, will set patient up with [facility] PT
[2018-06-12 12:21] VITALS: BP 126/59; PULSE 91; RESP 17; TEMP 97.7
--- NOTE | 2018-06-12 14:43 | P.DS ---
Date of admission: 06/08/18 09:06 Primary care physician: UNKNOWN Brief History from admission: Mr Aceves is a 77 year old male with history of prior L2-3 and L3-4 laminectomy and discectomy, as well as prior history of L4 fractures, status post prior kyphoplasty. He presented with intractable mechanical back pain and nataliia evidence of L3 and L4 lower extremity radiculopathy. He has failed maximum nonsurgical management including multiple modalities of conservative treatment as well as pain management interventions by an interventional pain specialist. A surgical decompression and arthrodesis were indicated as a last resort. DS: Medications - Discharge Medications Prescriptions: hydrocodone-acetaminophen [Pitt[place]] 1 tab PO Q4-6H PRN 7 Days #30 tab PRN Reason: Pain DS: Summary Hospital Course: Mr. Aceves underwent L2-3, L3-4 redo lumbar laminectomy, interbody arthrodhesis using PEEK cage and autologous bone graft, L2-3, L3-4 instrumental fixation using transpedicular screws and rods, L2-L3,L3-4 posterolateral fusion using autologous bone graft and demineralized bone matrix. Microsurgical dissection for Severe severe lumbar degenerative disc disease and lumbar spinal stenosis on 06/08/18. His postoperative pain controlled and was discharged home in stable conditions. - Time Spent with Patient Total time spent providing and/or coordinating discharge services: Less than 30 minutes - Quality: VTE Deep Vein Thrombosis/Pulmonary Embolism Present on Admission: No Exam Vital signs: Vital Signs 06/11/18 15:35 06/11/18 15:51 06/11/18 17:48 Temperature 98.9 F Pulse Rate 91 H Respiratory Rate 18 20 18 Blood Pressure 152/72 H Pulse Oximetry 92 L 06/11/18 18:52 06/11/18 19:40 06/11/18 20:00 Temperature 98 F Pulse Rate 91 H Respiratory Rate 18 18 18 Blood Pressure 159/85 H Pulse Oximetry 95 06/11/18 23:45 06/12/18 04:05 06/12/18 07:30 Temperature 98 F 97.3 F L 97.3 F L Pulse Rate 82 81 98 H Respiratory Rate 18 18 17 Blood Pressure 133/76 137/72 96/54 L Pulse Oximetry 95 95 92 L 06/12/18 08:00 06/12/18 08:50 06/12/18 12:05 Temperature 97.7 F Pulse Rate 91 H Respiratory Rate 16 17 Blood Pressure 129/76 126/59 L Pulse Oximetry 92 L Intake & Output 06/11/18 06/12/18 06/12/18 18:59 06:59 18:59 Intake Total 120 / 120 Balance 120 / 120 Weight 87.2 kg Intake: Oral 120 / 120 Other: # Voids 4 3 Date of Last Bowel Movement 06/11/18 06/11/18 # Bowel Movements 2 0 Results Procedures completed during hospitalization: L2-3, L3-4 redo lumbar laminectomy, interbody arthrodhesis using PEEK cage and autologous bone graft, L2-3, L3-4 instrumental fixation using transpedicular screws and rods, L2-L3,L3-4 posterolateral fusion using autologous bone graft and demineralized bone matrix. Microsurgical dissection Labs on day of discharge: Labs from last 24 hours 06/12/18 04:27 WBC 11.6 H RBC 3.92 L Hgb 11.9 L Hct 35.2 L MCV 89.9 MCH 30.3 MCHC 33.7 RDW 14.7 Plt Count 198 MPV 9.3 Neut % (Auto) 67.3 Lymph % (Auto) 26.4 [place] % (Auto) 4.8 Eos % (Auto) 1.2 Baso % (Auto) 0.3 Neut # (Auto) 7.8 H Lymph # (Auto) 3.1 [place] # (Auto) 0.6 Eos # (Auto) 0.1 Baso # (Auto) 0.0 WBC Differential . Differential Comment Auto diff final - Impressions ITS Impressions Lumbar Spine X-Ray 06/08/18 00:00 CONCLUSION: Good position and alignment on this postoperative study. Discharge Plan - Discharge Disposition Patient Disposition: /Home Health Service - Discharge Condition Condition: Stable - Discharge Order Discharge Orders: Discharge Order (Routine); Ordered 06/12/18 Ordered By: Kita Trujillo - Physicians Team Primary Care Provider: UNKNOWN, Attending Provider: Moises Hall Other Providers: Jorge Patel ; Apryl Huertas MD - Rxs /Orders / Referrals /Forms Prescriptions: New hydrocodone-acetaminophen [Pitts] 10-325 mg Tablet 1 tab PO Q4-6H PRN (Reason: Pain) 7 Days Qty: 30 RF: 0 Continue amlodipine 10 mg Tablet 10 mg PO DAILY atorvastatin 40 mg Tablet 40 mg PO DAILY gabapentin 600 mg Tablet Extended Release 24 Hr 600 mg PO DAILY losartan 100 mg Tablet 100 mg PO DAILY tamsulosin 0.4 mg Capsule 0.4 mg PO DAILY Discontinued diclofenac sodium 50 mg Tablet,Delayed Release (Dr/Ec) 50 mg PO DAILY hydrocodone-acetaminophen 5-325 mg Tablet 1 tab PO Q4-6H PRN (Reason: Pain) tramadol 50 mg Tablet 50 mg PO Q4-6H PRN (Reason: Pain) Ambulatory Orders / Order Sets / DME: Walker With Front Wheels (1 each) (Routine) Location: Determined by Patient Ordered By: Kita Trujillo Referrals: UNKNOWN, [Primary Care Provider] - See Instructions - Discharge Instructions Patient Printed Instructions: Lumbar Spinal Fusion (DC)
--- NOTE | 2018-06-12 18:39 | P.PNIM ---
Subjective Interval history: Follow-up for hypertension, hyperlipidemia, BPH and severe lumbar spinal stenosis status post lumbar fusion. Patient is resting in bed. Son at bedside. Patient is being discharged home per primary team. He denies back pain and he is wearing his brace. Occasional stomach upset when taking meds. Discussed PPI and food intake with medications. He verbalized understanding. Physical Exam Vital signs: Last Vital Signs Temp 97.7 F 06/12/18 12:05 Pulse 91 H 06/12/18 12:05 Resp 17 06/12/18 12:05 BP 126/59 L 06/12/18 12:05 Pulse Ox 92 L 06/12/18 12:05 Intake & Output 06/10/18 06/11/18 06/12/18 06/13/18 06:59 06:59 06:59 06:59 Intake Total 3170 / 3170 1680 / 1680 120 / 120 Output Total 975 / 975 Balance 2195 / 2195 1680 / 1680 120 / 120 Weight 89 kg 87.2 kg Narrative: GENERAL: Well-developed, well-nourished, male in no apparent distress SKIN: Warm and dry. HEAD: Atraumatic. Normocephalic. EYES: Pupils equal and round. No scleral icterus. No injection or drainage. ENT: No nasal bleeding or discharge. Mucous membranes pink and moist. NECK: Trachea midline. No JVD. CARDIOVASCULAR: Regular rate and rhythm. RESPIRATORY: No accessory muscle use. Clear to auscultation. Breath sounds equal bilaterally. GASTROINTESTINAL: Abdomen soft, non-tender, nondistended. Hepatic and splenic margins not palpable. MUSCULOSKELETAL: Extremities without clubbing, cyanosis, or edema. No obvious deformities. Mid right lumbar incision clean dry and intact healing well, no redness no edema no drainage. NEUROLOGICAL: Awake and alert and oriented x3 no obvious cranial nerve deficits. Motor grossly within normal limits. Generalized weakness moving all 4 extremities \. Normal speech. PSYCHIATRIC: Appropriate mood and affect; insight and judgment normal. i Urinary Catheter Management Indwelling Urethral Catheter: Cath placed during this visit: yes, but has since been removed by the nurse Insertion date: 06/08/18 Removal date: 06/09/18 Removal time: 10:30 Results Labs CBC & Chem 7: 06/12/18 04:27 06/11/18 07:40 Procedures Procedures: L2-3, L3-4 redo lumbar laminectomy, interbody arthrodhesis using PEEK cage and autologous bone graft, L2-3, L3-4 instrumental fixation using transpedicular screws and rods, L2-L3,L3-4 posterolateral fusion using autologous bone graft and demineralized bone matrix. Microsurgical dissection Assessment and Plan (1) Status post laminectomy: Code(s): Z98.890 - Other specified postprocedural states Status: Acute (2) Lumbar degenerative disc disease: Code(s): M51.36 - Other intervertebral disc degeneration, lumbar region Status: Acute (3) Lumbar spinal stenosis: Code(s): M48.061 - Spinal stenosis, lumbar region without neurogenic claudication Status: Acute (4) History of throat cancer: Code(s): Z85.819 - Personal history of malignant neoplasm of unspecified site of lip, oral cavity, and pharynx Status: Acute (5) Hypertension: Code(s): I10 - Essential (primary) hypertension Status: Acute (6) Hyperlipidemia: Code(s): E78.5 - Hyperlipidemia, unspecified Status: Acute (7) BPH (benign prostatic hyperplasia): Code(s): N40.0 - Benign prostatic hyperplasia without lower urinary tract symptoms Status: Acute Plan Mr Aceves is a 77 year old male with past medical history history of hypertension, hyperlipidemia, BPH and severe lumbar spinal stenosis with prior L2-3 and L3-4 laminectomy and discectomy, as well as prior history of L4 fractures, status post prior kyphoplasty. He presented with intractable mechanical back pain and nataliia evidence of L3 and L4 lower extremity radiculopathy. Severe lumbar spinal stenosis Lumbar degenerative disc disease Status post laminectomy History of L2-L3 laminectomy and discectomy Chronic back pain -Status post L2-3, L3-4 redo lumbar laminectomy, instrument of fixation with trans-pedicular hooks screws and amandeep, posterolateral fusion with autologous bone graft and demineralized bone matrix, microsurgical dissection on [address] Hall -Discontinued Dilaudid pump, continue as needed Mcdonough. Pain management by neurosurgeon -Increase bowel regimen -Continue PT rehab per protocol -Continue gabapentin, encourage p.o. pain medication to transition to oral pain control. -Neurosurgeon following: Plan to discharge on Monday Leukocytosis - evaluated 06/12/18, trending down -no fever or chills -WBC trending down, 11.6 today -s/p Cefazolin IV as surgical prophylactic treatment -monitor signs and symptoms, monitor CBC Hypertension - evaluated 06/12/18, stable -Blood pressure controlled -Continue amlodipine, losartan and Norvasc -Monitor blood pressure Hyperlipidemia, chronic and stable -Continue atorvastatin -Monitor lipids and LFT BPH -Continue tamsulosin -Monitor Constipation Likely related to pain medication -Give laxative as needed -Continue increase dose of stool softener -Monitor response, improving, had a good bowel movement this morning Dyspepsia Abdominal pain -Add Pepto-Bismol as needed - continue Protonix GI prophylaxis: Protonix DVT Prophylaxis: bilateral SCD's Progress Note: Quality VTE Deep Vein Thrombosis/Pulmonary Embolism Present on Admission: No _ (1) Lumbar spinal stenosis Qualifiers: Neurogenic claudication status: (2) Hypertension Qualifiers: Hypertension type: (3) Hyperlipidemia Qualifiers: Hyperlipidemia type: (4) BPH (benign prostatic hyperplasia) Qualifiers: Lower urinary tract symptom presence: Lower urinary tract symptom detail:
== END 2018-06-12 14:33 | disposition home health service (06) ==
LOC: HSDI 06-08 09:06 → N06 06-08 22:05
PROVIDERS: ADMIT Neurological Surgery; ATTEND Neurological Surgery
DX: K59.00 Constipation, unspecified; I10 Essential (primary) hypertension; H91.92 Unspecified hearing loss, left ear; Z79.899 Other long term (current) drug therapy; N40.0 Benign prostatic hyperplasia without lower urinary tract symptoms; Z92.3 Personal history of irradiation; Z87.891 Personal history of nicotine dependence; Z85.819 Personal history of malignant neoplasm of unspecified site of lip, oral cavity, and pharynx; G47.30 Sleep apnea, unspecified; D72.829 Elevated white blood cell count, unspecified; M48.061 Spinal stenosis, lumbar region without neurogenic claudication; M51.16 Intervertebral disc disorders with radiculopathy, lumbar region; E78.5 Hyperlipidemia, unspecified